=== PATIENT | female | born 1965 | race Caucasian/White ===

== ENCOUNTER → 2017-01-20 | Outpatient (CLI) | payer OTHER ==
[~2017-01-20] MED LIST: /HCTZ25TA PO; Colace PO; Ibuprofen PO; LIDOCAINE 1% MDV 20ML VIAL As Ordered ONE; LISIPOW PO; Percocet PO; SYNT75TA PO
--- NOTE | 2017-01-20 13:22 | REP ---
Digital diagnostic unilateral right breast mammography: Two views. Marker clip placement study. History: Patient status post stereotactic needle biopsy right breast for microcalcifications. Comparison mammography is dated December 24, 2016 and December 19, 2016 from [facility]. Findings: The marker clip is seen in good position at the position of the target microcalcifications. The target microcalcifications are not visible on today's mammographic images. I note that the specimen radiograph shows only one microcalcification. Recommend 6-month follow-up right breast mammography. Impression: Marker clip in good position. If the biopsy is benign, I recommend 6-month follow-up right breast mammogram. Signed by Rishi Bird MD 01/20/2017 04:46 P
--- NOTE | 2017-01-20 13:24 | REP ---
Specimen radiography right breast: Two views. History: Status post stereotactic needle biopsy right breast for microcalcifications. Comparison diagnostic and screening mammography are from [facility] dated December 24 and December 19, 2016. Findings: A total of nine core specimens were retrieved. Specimen radiography demonstrates a single microcalcification in the first retrieved core. No other microcalcifications are apparent. Impression: Specimen radiography shows only one microcalcification from the target grouping of calcifications. 6-month follow-up mammography recommended. Signed by Rishi Bird MD 01/20/2017 04:46 P
--- NOTE | 2017-01-22 15:21 | REP ---
STEREOTACTIC BIOPSY OF THE RIGHT BREAST: Procedure was performed by Ayanan PAYNE, under the direct supervision of Dr. Bird. The procedure with its potential risks and complications were discussed with the patient. Verbal and written consent were obtained. After obtaining informed consent, the patient was positioned seated within the stereotactic biopsy chair, and the target was localized with digital imaging. A craniocaudal approach was used. The skin was cleaned with Chloraprep. Cutaneous and deeper subcutaneous anesthesia was achieved using 16 mL of 1% Xylocaine. A small scalpel incision was made. The Mammotome probe was inserted and its accuracy of position confirmed with pre-fire images prior to the first pass. A total of nine core biopsy specimens were obtained. A marker clip was placed at the site of the biopsy. Postprocedure craniocaudal and mediolateral projections disclose the clip to be at the target site. Following the procedure, the wound was cleansed and compressed. Steri-Strips and sterile gauze were applied, and the patient was given post biopsy procedure instructions. She left the department in good condition. Successful stereotactic biopsy procedure. Reviewed by ELMER Garcia 01/22/2017 03:29 P
== END ==
LOC: M RADPRO 10:19
PROVIDERS: ATTEND Surgery
DX: R92.0 Mammographic microcalcification found on diagnostic imaging of breast (principal); N60.11 Diffuse cystic mastopathy of right breast